=== PATIENT | female | born 1950 | race Caucasian/White ===

== ENCOUNTER 2017-02-26 08:47 | Outpatient (RCR) | payer MEDICARE, OTHER ==
[2017-02-20 09:56] LABS: PLATELET COUNT, AUTOMATED 196 K/uL (150-450)
[~2017-02-26] VITALS: Ht 162.6 cm; Wt 72.3 kg
[~2017-02-26 08:47] MED LIST: ACET-1966 PO; ACET-2146 PO; ANAS1TAB35 PO; CALC-2 PO; CHOL200021 PO; CHOL200022 PO; CIPR500S3 PO; CLO10 MT; DIPH-740 PO; EMERGEN-C PO; FENO160T11 PO; HYDR-317 PO; INUL1TAB PO; LOR1 PO; LORA-629 PO; LUTE20TA PO; MAGN250T34 PO; MAGN71.52 PO; MELA2.5T PO; OMEP40CA45 PO; PROC10TA4 PO; PYRI100T57 PO; SIMV-49 PO; VITA-175 PO; VITA1CAP46 PO; ZINC50TA2 PO; [UNRECOGNIZED DRUG - OTHER] PO; megakrill PO; supplements
[2017-02-26 08:57] VITALS: BP 151/84
[2017-02-26] MEDS ORDERED: PRESSER VISION (09:00)
[2017-02-26] MEDS ORDERED: VIT1CAPS9 PO (09:02)
--- NOTE | 2017-02-26 10:31 | [facility] ONCOLOGY NOTE ---
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 HISTORY OF PRESENT ILLNESS Karena returns. She has no new issues. She does complain of some joint achiness and feels that phlebotomy in the past has helped with this. She can get some arthralgias from the aromatase inhibitor as well. However, she had arthritis preceding initiation of it. No new issues. She does complain of dry skin, and we discussed some remedies to improve this. She currently uses Cetaphil cream, and I recommendation consideration of some Aquaphor ointment one to two times a day given the dry cold air at this time. No fevers, chills, concerning lumps or bumps, other concerns. Family is doing well, but her daughter is under high stress with increased work requirements at the [employer] [place]. Karena is helping with various projects including helping with the [employer] team for the [employer]. No other new complaints today. ONCOLOGIC HISTORY The patient received 9 out of a planned 12 cycles of weekly Taxol and Herceptin. The Taxol was stopped due to toxicity. Her history includes a stereotactic biopsy of the lesion in July of 2014 followed by resection with lumpectomy of the left breast lesion on August 20, 2014. She only had 8 mm of invasive cancer, and the sentinel lymph node was negative; however, it was HER2/ franky overexpressed, thus she received chemotherapy and Herceptin. The patient then started on Arimidex and continues on this today. She completed radiation therapy to the left breast after the lumpectomy. This included a boost. Radiation was completed on February 15, 2015. PAST MEDICAL HISTORY Please see my prior note from August 28, 2016. SOCIAL HISTORY Patient is . She has two daughters and both live in [place]. Her hobbies include gardening. REVIEW OF SYSTEMS CONSTITUTIONAL: No fevers, chills or weight change. HEENT: No headache or vision changes. CARDIOVASCULAR: No chest pain, dyspnea on exertion or edema. RESPIRATORY: No shortness of breath, wheeze or cough. GASTROINTESTINAL: No nausea, vomiting. GENITOURINARY: No dysuria or hematuria. MUSCULOSKELETAL: No weakness. Positive joint pain that seems to have worsened recently. I do note that her hematocrit is on the high end of normal. PSYCHIATRIC: No anxiety or depression. ENDOCRINE: No heat or cold intolerance. HEMATOLOGIC/LYMPHATIC: No concerning lumps or bumps. She does bruise easily on the forearms, but this is age related. SKIN: No concerning rashes. The remainder of 14-point review of systems otherwise negative. PHYSICAL EXAMINATION VITAL SIGNS: Blood pressure 151/85, pulse 71, respiratory rate 16, temperature 96.7 Fahrenheit, oxygen saturation 96% on room air. Weight 72.3 kg. Pain 0/10 , fatigue 0/10. GENERAL: Stable condition, resting comfortably in the chair. HEENT: Normocephalic, atraumatic. CARDIOVASCULAR: Regular rate and rhythm. LUNGS: Clear to auscultation bilaterally. ABDOMEN: Soft, nontender, nondistended. No organomegaly. Mild obesity. BREASTS: Exam deferred. LYMPHATIC: No appreciable cervical, supraclavicular or axillary adenopathy. The remainder of physical exam otherwise unremarkable. IMPRESSION/PLAN Mrs. Asher is a pleasant 66-year-old female with the followin. Stage I early-stage node-negative triple-positive breast cancer. She has finished her year of Herceptin. She continues her aromatase inhibitor for at least five years and perhaps ten years. Overall she is tolerating it well. 2. 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 She has benefitted from phlebotomy in the past and has felt better, including improvement in arthralgias. Plan to set up for a phlebotomy this month of one unit. 3. Arthralgias, both due to osteoarthritis with a possible component due to the aromatase inhibitor as well. I answered all of her questions today. Billing: Return visit level 4. Total time 30 minutes, counseling time 20. MTDD
== END 2017-03-09 09:08 | disposition home or self-care (01) ==
LOC: ONC 08:47
PROVIDERS: ATTEND Internal Medicine
DX: Z85.3 Personal history of malignant neoplasm of breast (principal); D75.1 Secondary polycythemia; M25.50 Pain in unspecified joint; Z79.899 Other long term (current) drug therapy
CPT/HCPCS: 36415; 85025; G0463; 82040; 82247; 82310; 82374; 82435; 82465; 82565; 82947; 83718; 84075; 84132; 84155; 84295; 84450; 84460; 84478; 84520; 99212

== ENCOUNTER → 2017-02-27 | Outpatient (CLI) | payer MEDICARE, OTHER ==
[~2017-02-27] MED LIST changes: +PRESSER VISION; +VIT1CAPS9 PO
== END ==
LOC: LAB 14:30
PROVIDERS: ATTEND Internal Medicine
DX: C50.919 Malignant neoplasm of unspecified site of unspecified female breast (principal); Z79.899 Other long term (current) drug therapy
CPT/HCPCS: 36415; 85014; 99195

== ENCOUNTER 2017-07-03 12:58 | Outpatient (RCR) | payer MEDICARE, OTHER ==
[2017-07-03 13:05] VITALS: BP 121/71
[2017-07-14] MEDS ORDERED: MECL25TA9 PO (01:38)
== END 2017-08-14 08:23 | disposition home or self-care (01) ==
LOC: SPU 12:58
PROVIDERS: ATTEND Internal Medicine
DX: D75.1 Secondary polycythemia (principal); Z85.3 Personal history of malignant neoplasm of breast
CPT/HCPCS: 36415; 85014

== ENCOUNTER 2017-07-13 22:08 | Emergency (ER) | payer MEDICARE, OTHER ==
--- NOTE | 2017-07-13 22:17 | ER Report ---
History and Physical Time Seen By MD: 22:16 HPI/ROS CHIEF COMPLAINT: dizziness, numbness in face HISTORY OF PRESENT ILLNESS: This is a 66 year old female. She was at home tonight. Had a bout of vertigo, which is still present, although improved. She felt her tongue and lips go numb, similar to when she has a dental numbing. This spread to her left cheek. She had a little bit of slurred speech as well. No trouble swallowing. No headache. Had some blurred vision, but no double vision. No weakness or numbness in arms or legs. No history of strokes or TIAs in the past. No other illnesses recently. REVIEW OF SYSTEMS: Constitutional: No fever or chills. Eyes: As above. ENT: No sore throat. No congestion. Cardiovascular: No chest pain. No palpitations. Respiratory: No cough. No shortness of breath. Gastrointestinal: No abdominal pain. No change in bowel movements. Genitourinary: No dysuria or problems with urination. Musculoskeletal: No musculoskeletal pain. Skin: No rashes. Neurological: As above. Allergies: Coded Allergies: acetaminophen (Verified Allergy, Intermediate, AVOIDS D/T LIVER ENZYMES, ) Sulfa (Sulfonamide Antibiotics) (Verified Allergy, Unknown, RASH, N/V, ) aspirin (Verified Allergy, Unknown, VERTIGO, AND VOMITTING , 07/13/17) codeine (Verified Allergy, Unknown, 07/13/17) Uncoded Allergies: NASOCOR (Allergy, Severe, ANAPHYLAXIS, 09/07/14) HAYFEVER (Allergy, Intermediate, HEADACHES, COUGHING, 01/25/16) BAR 2 INHIBITORS (Allergy, Unknown, 07/14/14) DAIRY (Allergy, Unknown, 07/14/14) Home Meds Active Scripts Meclizine Hcl (MECLIZINE HCL) 25 Mg Tablet, 25 MG PO BID Y for DIZZINESS, #20 TAB 0 Refills Prov:CHASITY JOSHUA MD 07/14/17 Anastrozole (ARIMIDEX) 1 Mg Tablet, 1 MG PO DAILY, #90 TAB 3 Refills Prov:LUDA ALEJO MANAGER OF [employer]ANCIAL[employer], ONC 01/25/17 Reported Medications Vit C/E/Zn/Coppr/Lutein/Zeaxan (Preservision Areds 2 Softgel) 1 Each Capsule, 2 TAB PO BID 02/26/17 Vitamin B Complex (B COMPLEX) 1 Each Tablet, 1 EACH PO DAILY 02/28/16 Magnesium Chloride (SLOW-MAG) 71.5 Mg Tablet.dr, 143 MG PO DAILY 09/07/14 Cholecalciferol (Vitamin D3) (VITAMIN D) 2,000 Unit Tablet, 2000 UNIT PO TID 09/03/14 [megakrill] No Conflict Check, 1000 MG PO QDAY 08/13/14 Calcium Phosphate Trib/Vit D3 (Calcium + Vitamin D3 Gummies) 1 Each Tab.chew, 4 TAB PO QDAY 08/13/14 Past Medical/Surgical History Occasional headaches, hyperlipidemia, diverticulosis, history of breast cancer with lumpectomy and chemotherapy and radiation. Other surgeries include basal cell carcinoma removal, hysterectomy, ankle fusion, tonsillectomy Reviewed Nurses Notes: Yes Hx Smoking: No Smoking Status: Never Smoker Exposure to Second Hand Smoke?: No Hx Substance Use Disorder: No Hx Alcohol Use: Yes Constitutional Vital Sign - Last 24 Hours 07/13/17 07/13/17 07/13/17 07/13/17 22:14 22:23 22:30 22:38 Temp 97.5 Pulse 74 ??? 66 Resp 24 15 B/P (MAP) 144/87 141/86 (104) Pulse Ox 93 95 95 O2 Delivery Room Air 07/13/17 07/13/17 07/13/17 07/13/17 22:53 23:00 23:08 23:23 Pulse 62 65 70 Resp 12 26 9 B/P (MAP) 150/84 (106) Pulse Ox 95 92 95 07/13/17 07/13/17 07/13/17 07/13/17 23:28 23:30 23:43 23:48 Pulse 61 61 60 Resp 13 11 12 B/P (MAP) 145/83 (103) Pulse Ox 95 07/14/17 07/14/17 07/14/17 07/14/17 00:58 01:00 01:03 01:23 Pulse 55 64 Resp 18 15 B/P (MAP) 146/84 (104) 151/79 (103) Pulse Ox 89 93 Physical Exam General Appearance: The patient is alert. No acute distress. Non-toxic in appearance. Eyes: Pupils are equal, round. Reactive to light. No pallor, injection or icterus. Extraocular movements are intact. No nystagmus. Normal peripheral hickey. ENT: Mucous membranes are moist. Normal oral mucosa. Posterior oropharynx is normal. Normal tympanic membranes and canals. Neck: Supple and non tender. No lymphadenopathy. Respiratory: Lungs are clear to auscultation. Cardiovascular: Regular rate and rhythm. No murmurs, gallops or rubs. Normal capillary refill. No edema. No carotid bruits. Gastrointestinal: Abdomen is soft and non tender. Nondistended. Normal active bowel sounds. No costovertebral angle tenderness with percussion. Neurological: Alert and oriented x3. Cranial nerves with eye exam as noted above , she still has numbness in her tongue but tongue is midline and she has symmetric palate elevation. Normal sensation in the face at this time without any evidence of facial droop, although there was slight loss of the nasolabial fold when I walked into the room initially but this is normal. No slurred speech. No trouble swallowing. Normal gag. Extremities also show diminished reflexes throughout but normal, normal strength and sensation in the extremities bilaterally. Normal cerebellar function with [id number] and finger to nose. Skin: Warm and dry. No rashes. Musculoskeletal: Extremities are nontender. No tenderness in palpation of the cervical, thoracic and lumbar spine. DIFFERENTIAL DIAGNOSIS: After history and physical exam, differential diagnosis was considered for what appears to be likely transient ischemic attack given her symptoms. Medical Decision Making Data Points Result Diagram: 07/13/17224407/13/172244 Laboratory Hematology Test 07/13/17 22:45 07/13/17 22:51 Red Blood Count 4.67 M/uL (4.17-5.56) Mean Corpuscular Volume 91.8 fL (80.0-96.0) Mean Corpuscular Hemoglobin 32.5 pg (26.0-33.0) Mean Corpuscular Hemoglobin Concent 35.4 g/dL (32.0-36.0) Red Cell Distribution Width 13.6 % (11.5-14.5) Mean Platelet Volume 8.8 fL (7.2-11.1) Neutrophils (%) (Auto) 48.8 % (39.4-72.5) Lymphocytes (%) (Auto) 35.5 % (17.6-49.6) Monocytes (%) (Auto) 12.5 % (4.1-12.4) Eosinophils (%) (Auto) 1.8 % (0.4-6.7) Basophils (%) (Auto) 1.4 % (0.3-1.4) Nucleated RBC Relative Count (auto) 0.1 /100WBC Neutrophils # (Auto) 2.4 K/uL (2.0-7.4) Lymphocytes # (Auto) 1.7 K/uL (1.3-3.6) Monocytes # (Auto) 0.6 K/uL (0.3-1.0) Eosinophils # (Auto) 0.1 K/uL (0.0-0.5) Basophils # (Auto) 0.1 K/uL (0.0-0.1) Nucleated RBC Absolute Count (auto) 0.01 K/uL Prothrombin Time 13.5 seconds (12.0-14.4) Prothromb Time International Ratio 1.03 Activated Partial Thromboplast Time 30 seconds (23-35) Sodium Level 135 mmol/L (137-145) Potassium Level 3.4 mmol/L (3.5-5.0) Chloride Level 102 mmol/L (98-107) Carbon Dioxide Level 24 mmol/L (22-31) Blood Urea Nitrogen 11 mg/dl (7-18) Creatinine 0.70 mg/dl (0.52-1.04) Glomerular Filtration Rate Calc > 60.0 Random Glucose 117 mg/dl (75-110) Calcium Level 9.6 mg/dl (8.4-10.2) Total Bilirubin 0.4 mg/dl (0.2-1.3) Aspartate Amino Transf (AST/SGOT) 28 U/L (0-35) Alanine Aminotransferase (ALT/SGPT) 20 U/L (0-56) Alkaline Phosphatase 106 U/L (0-126) Troponin I < 0.012 ng/ml Total Protein 6.8 gm/dl (6.3-8.2) Albumin 3.7 g/dl (3.5-5.0) Whole Blood Glucose 107 mg/DL (75-110) Chemistry Test 07/13/17 22:45 07/13/17 22:51 White Blood Count 4.9 k/uL (4.5-11.0) Red Blood Count 4.67 M/uL (4.17-5.56) Hemoglobin 15.2 g/dL (12.0-16.0) Hematocrit 42.9 % (34.0-47.0) Mean Corpuscular Volume 91.8 fL (80.0-96.0) Mean Corpuscular Hemoglobin 32.5 pg (26.0-33.0) Mean Corpuscular Hemoglobin Concent 35.4 g/dL (32.0-36.0) Red Cell Distribution Width 13.6 % (11.5-14.5) Platelet Count 193 K/uL (150-450) Mean Platelet Volume 8.8 fL (7.2-11.1) Neutrophils (%) (Auto) 48.8 % (39.4-72.5) Lymphocytes (%) (Auto) 35.5 % (17.6-49.6) Monocytes (%) (Auto) 12.5 % (4.1-12.4) Eosinophils (%) (Auto) 1.8 % (0.4-6.7) Basophils (%) (Auto) 1.4 % (0.3-1.4) Nucleated RBC Relative Count (auto) 0.1 /100WBC Neutrophils # (Auto) 2.4 K/uL (2.0-7.4) Lymphocytes # (Auto) 1.7 K/uL (1.3-3.6) Monocytes # (Auto) 0.6 K/uL (0.3-1.0) Eosinophils # (Auto) 0.1 K/uL (0.0-0.5) Basophils # (Auto) 0.1 K/uL (0.0-0.1) Nucleated RBC Absolute Count (auto) 0.01 K/uL Prothrombin Time 13.5 seconds (12.0-14.4) Prothromb Time International Ratio 1.03 Activated Partial Thromboplast Time 30 seconds (23-35) Glomerular Filtration Rate Calc > 60.0 Calcium Level 9.6 mg/dl (8.4-10.2) Total Bilirubin 0.4 mg/dl (0.2-1.3) Aspartate Amino Transf (AST/SGOT) 28 U/L (0-35) Alanine Aminotransferase (ALT/SGPT) 20 U/L (0-56) Alkaline Phosphatase 106 U/L (0-126) Troponin I < 0.012 ng/ml Total Protein 6.8 gm/dl (6.3-8.2) Albumin 3.7 g/dl (3.5-5.0) Whole Blood Glucose 107 mg/DL (75-110) Coagulation Test 07/13/17 22:45 Prothrombin Time 13.5 seconds Prothromb Time International Ratio 1.03 Activated Partial Thromboplast Time 30 seconds EKG/Imaging Imaging CHEST SINGLE AP 07/13/2017 22:31 hours. HISTORY: Facial numbness and slurred speech. Dizziness. COMPARISON: 11/09/2014. TECHNIQUE: Portable AP view of the chest. FINDINGS: Tubes/lines/hardware: There are external chest leads. Pulmonary: There is hyperinflation. There is minimal right basilar atelectasis. There is a stable calcified granuloma in the left lower lung zone. There is no pneumothorax or pleural effusion. Cardiomediastinal: Cardiac and mediastinal silhouettes are within normal limits. There is mild aortic calcification. Bones/soft tissues: No acute osseous abnormality. There is mild degenerative change of the spine. The visible abdomen is normal. IMPRESSION: 1. Minimal right basilar atelectasis. Report Dictated By: Rosario Stinson at 07/13/2017 11:26 PM EXAMINATION: CT Head without intravenous contrast HISTORY: Facial numbness. Slurred speech. TECHNIQUE: Axial images were obtained from the skull base to the vertex without intravenous contrast. Sagittal and coronal reformatted images are also submitted. One of the following dose optimization techniques was utilized in the performance of this exam: Automated exposure control; adjustment of the mA and/ or kV according to the patient's size; or use of an iterative reconstruction technique. Specific details can be referenced in the facility's radiology CT exam operational policy. COMPARISON: None available. FINDINGS: Brain volume: Normal. Ventricles: Negative. Acute ischemic changes: None. Hemorrhage: None. Masses / edema: None. Rojas-white: Negative. White matter: Mild chronic microvascular ischemic changes in the frontal lobes. Vessels: Negative. Extra-axial: Negative. Calvarium / skull base: Negative. Visualized sinuses / orbits: Rightward nasal septal deviation. IMPRESSION: No acute intracranial abnormality. Report Dictated By: Sal Romero MD at 07/13/2017 11:22 PM EXAMINATION: MRI Brain without intravenous contrast HISTORY: Facial numbness. Dizziness. COMPARISON: Noncontrast head CT from same date. TECHNIQUE: Multi-planar, multi-sequence brain MRI was performed without IV contrast administration. FINDINGS: Brain volume: Normal. Sagittal midline structures: Negative. Ventricles: Negative. Acute ischemic changes: None. Hemorrhage: None. Masses / edema: None. Rojas-white: Negative. White matter: A few T2/FLAIR hyperintensities in the deep white matter bilaterally. Vessels: Negative. Extra-axial: Negative. Calvarium / scalp: Negative. Skull base: Negative. Visualized sinuses / orbits: Negative. Visualized upper neck: Negative. IMPRESSION: 1. No acute intracranial abnormality. 2. Mild chronic white matter changes, nonspecific but most likely representing chronic microvascular ischemia. Report Dictated By: Sal Romero MD at 07/14/2017 1:00 AM ED Course/Re-evaluation ED Course On my initial walk in the room once hearing her symptoms, stat head CT scan without contrast was ordered. This was negative. An NIH stroke scale was done upon her return from radiology and she scored a zero on this as well. Normal physical exam as noted, other than the continued numbness in her tongue. Bedside blood glucose was normal. Labs obtained and negative. Normal chest x- ray. MRI brain done which was negative for acute stroke. Meclizine provided to help with Vertigo. No sign of stroke, but cannot tell for sure cause of symptoms. Would think that TIA is the most likely diagnosis. Other cause of vertigo such as viral process cannot be excluded. Conservative approach. She is allergic to aspirin, so cannot start this. She will discuss Statins with her primary care provider. Follow-up studies to be done include CTA Brain and Neck/Carotids as well as Echocardiogram. Decision to Disposition Date: July 14, 2017 Decision to Disposition Time: 01:29 Depart Departure Latest Vital Signs Vital Signs Date Time Temp Pulse Resp B/P (MAP) Pulse Ox O2 Delivery O2 Flow Rate FiO2 07/14/17 01:23 64 15 93 07/14/17 01:00 151/79 (103) 07/13/17 22:14 97.5 Room Air Impression: Primary Impression: Transient ischemic attack (TIA) Condition: Improved Disposition: HOME OR SELF-CARE Referrals: MICHELE GODYO (PCP) New Scripts Meclizine Hcl (MECLIZINE HCL) 25 Mg Tablet 25 MG PO BID Y for DIZZINESS, #20 TAB 0 Refills Prov: CHASITY JOSHUA MD 07/14/17 Patient Instructions: Transient Ischemic Attack (ED) Additional Instructions: Please call and arrange an appointment with Luda this week for re-evaluation. Schedule to have the CT scans and echocardiogram done here at the hospital this coming week. Rest and increase fluid intake. You will need to discuss other medicines that may be used to help prevent further TIA and stroke with Luda when you see her. Return to the ER for further problems as needed this weekend. Problem Qualifiers Primary Impression: Transient ischemic attack (TIA) Transient cerebral ischemia type: unspecified Qualified Codes: G45.9 - Transient cerebral ischemic attack, unspecified CHASITY JOSHUA MD July 13, 2017 22:17
[2017-07-13 22:52] LABS: PLATELET COUNT, AUTOMATED 193 K/uL (150-450)
[2017-07-13 23:01] LABS: INR 1.03
--- NOTE | 2017-07-13 23:30 | RADIOLOGY IMAGING REPORT ---
FACILITY: [facility] - [place] PATIENT NAME: Karena Asher : 1950 MR: [id number] V: [id number] EXAM DATE: ORDERING PHYSICIAN: CHASITY JOSHUA TECHNOLOGIST: Location: [facility] Patient: Karena Asher : 1950 Visit/Account:[id number] Date of Sevice: 07/13/2017 EXAMINATION: CT Head without intravenous contrast HISTORY: Facial numbness. Slurred speech. TECHNIQUE: Axial images were obtained from the skull base to the vertex without intravenous contrast . Sagittal and coronal reformatted images are also submitted. One of the following dose optimization techniques was utilized in the performance of this exam: Autom ated exposure control; adjustment of the mA and/or kV according to the patient's size; or use of an i terative reconstruction technique. Specific details can be referenced in the facility's radiology C T exam operational policy. COMPARISON: None available. FINDINGS: Brain volume: Normal. Ventricles: Negative. Acute ischemic changes: None. Hemorrhage: None. Masses / edema: None. Rojas-white: Negative. White matter: Mild chronic microvascular ischemic changes in the frontal lobes. Vessels: Negative. Extra-axial: Negative. Calvarium / skull base: Negative. Visualized sinuses / orbits: Rightward nasal septal deviation. IMPRESSION: No acute intracranial abnormality. Report Dictated By: Sal Romero MD at 07/13/2017 11:22 PM Report E-Signed By: Sal Romero MD at 07/13/2017 11:26 PM WSN:[id number]
--- NOTE | 2017-07-13 23:31 | RADIOLOGY IMAGING REPORT ---
[place] [facility] [place] NAME: Karena Ahser : 1950 MR: [id number] V: [id number] EXAM DATE: ORDERING PHYSICIAN: CHASITY JOSHUA TECHNOLOGIST: [place] [facility] [place]: Karena Asher : 1950 Visit/Account:[id number] Date of Sevice: 07/13/2017 CHEST SINGLE AP 07/13/2017 22:31 hours. HISTORY: Facial numbness and slurred speech. Dizziness. COMPARISON: 11/09/2014. TECHNIQUE: Portable AP view of the chest. FINDINGS: Tubes/lines/hardware: There are external chest leads. Pulmonary: There is hyperinflation. There is minimal right basilar atelectasis. There is a stable ritu cified granuloma in the left lower lung zone. There is no pneumothorax or pleural effusion. Cardiomediastinal: Cardiac and mediastinal silhouettes are within normal limits. There is mild aortic calcification. Bones/soft tissues: No acute osseous abnormality. There is mild degenerative change of the spine. The visible abdomen is normal. IMPRESSION: 1. Minimal right basilar atelectasis. Report Dictated By: Rosario Stinson at 07/13/2017 11:26 PM Report E-Signed By: Rosario Stinson at 07/13/2017 11:27 PM WSN:[id number]
[2017-07-13] MEDS ORDERED: ONDANSETRON 4 MG/2 ML VIAL IVP ONE (23:35)
[2017-07-14 01:00] VITALS: BP 151/79
--- NOTE | 2017-07-14 01:07 | RADIOLOGY IMAGING REPORT ---
FACILITY: [facility] PATIENT NAME: Karena Asher : 1950 MR: [id number] V: [id number] EXAM DATE: ORDERING PHYSICIAN: CHASITY JOSHUA [place]CHNOLOGIST: [place] [facility] [place] : 1950 Visit/Account:[id number] Date of Sevice: 07/13/2017 EXAMINATION: MRI Brain without intravenous contrast HISTORY: Facial numbness. Dizziness. COMPARISON: Noncontrast head CT from same date. TECHNIQUE: Multi-planar, multi-sequence brain MRI was performed without IV contrast administration. FINDINGS: Brain volume: Normal. Sagittal midline structures: Negative. Ventricles: Negative. Acute ischemic changes: None. Hemorrhage: None. Masses / edema: None. Rojas-white: Negative. White matter: A few T2/FLAIR hyperintensities in the deep white matter bilaterally. Vessels: Negative. Extra-axial: Negative. Calvarium / scalp: Negative. Skull base: Negative. Visualized sinuses / orbits: Negative. Visualized upper neck: Negative. IMPRESSION: 1. No acute intracranial abnormality. 2. Mild chronic white matter changes, nonspecific but most likely representing chronic microvascular ischemia. Report Dictated By: Sal Romero MD at 07/14/2017 1:00 AM Report E-Signed By: Sal Romero MD at 07/14/2017 1:03 AM WSN:[id number]
[2017-07-14] MEDS ORDERED: MECL25TA9 PO (01:38)
[2017-07-14] MEDS ORDERED: MECLIZINE HCL 12.5 MG TAB TH PO ONE (01:40)
--- NOTE | 2017-07-14 05:06 | EKG ---
FACILITY: [facility] - [place], [place] PATIENT NAME: RADHA LUCAS : [id number] MR: [id number] V: [id number] EXAM DATE: ORDERING PHYSICIAN: CHASITY JOSHUA TECHNOLOGIST: WALESKA Dia Reason : NEURO Blood Pressure : / mmHG Vent. Rate : 066 BPM Atrial Rate : 066 BPM P-R Int : 130 ms QRS Dur : 088 ms QT Int : 434 ms P-R-T Axes : 062 063 078 degrees QTc Int : 454 ms Normal sinus rhythm Possible Left atrial enlargement Borderline ECG When compared with ECG of 27-JAN-2016 09:59, No significant change was found Confirmed by ALEXY PEREZ ([id number]) on 07/14/2017 6:16:52 AM Referred By: TRES Confirmed By:ALEXY PEREZ
== END 2017-07-14 01:40 | disposition home or self-care (01) ==
LOC: ER 22:22
DX: G45.9 Transient cerebral ischemic attack, unspecified (principal)
CPT/HCPCS: 36416; 70450; 70551; 71045; 82948; 84484; 85025; 85610; 85730; 93005; 96374; 99284; J2405; 82040; 82247; 82310; 82374; 82435; 82565; 82947; 84075; 84132; 84155; 84295; 84450; 84460; 84520

== ENCOUNTER → 2017-07-17 | Outpatient (CLI) | payer MEDICARE, OTHER ==
[~2017-07-17] MED LIST changes: +MECL25TA9 PO
== END ==
LOC: NUC 13:58
PROVIDERS: ATTEND Nurse Practitioner Family
DX: Z02.9 Encounter for administrative examinations, unspecified (principal)

== ENCOUNTER → 2017-07-18 | Outpatient (CLI) | payer MEDICARE, OTHER ==
--- NOTE | 2017-07-18 17:49 | RADIOLOGY IMAGING REPORT ---
FACILITY: [facility] PATIENT NAME: Karena Asher : 1950 MR: [id number] V: [id number] EXAM DATE: ORDERING PHYSICIAN: KACIE ALEJO TECHNOLOGIST: Location: [facility] Patient: Karena Asher : 1950 Visit/Account:[id number] Date of Sevice: 07/18/2017 EXAMINATION: Single Isotope SPECT Imaging with Exercise and Gated SPECT Imaging DATE OF EXAMINATION: 07/18/2017 DATE OF INTERPRETATION: 07/18/2017 REQUESTING PHYSICIAN: KACIE ALEJO INDICATION: The patient is a 66-year-old female evaluated for fatigue, cerebral ischemia. PROCEDURE: After informed consent the patient received an intravenous injection of 12.3 mCi of Tc-9 9m sestamibi followed at the appropriate time interval by rest imaging. The patient then exercised a ccording to the [place] 2 protocol for 4:27 minutes achieving 5 METS. Resting heart rate was 66 bpm wi th a peak heart rate of 150 bpm which is 98 % of maximal predicted heart rate for age. Blood pressu re at rest was 156 / 95; blood pressure during exercise was 202 / 90. There was no chest pain during exercise. Exercise was discontinued because of fatigue. Baseline EKG demonstrates normal sinus rhy thm, no ST or T-wave abnormalities. There were no EKG changes of ischemia at peak exercise. Approxi mately one minute and 30 seconds prior to the termination of exercise, the patient received an intrav enous injection of 30.6 mCi of Tc-99m sestamibi followed by stress imaging. RAW DATA: Examination of the summed raw data revealed a good quality study. MYOCARDIAL PERFUSION: The tomographic images demonstrate no evidence of infarct or ischemia. GATED IMAGES: The gated images demonstrate normal wall motion, hyperdynamic ejection fraction at 84% IMPRESSION: 1. Good quality study 2. Normal myocardial perfusion scan. 3. Hyperdynamic LV systolic function; LVEF 84%. 4. Based on the results of this exam, the patient appears to be at low risk for future cardiovascular events. Report Dictated By: Jeremi Motley at 07/18/2017 5:34 PM Report E-Signed By: Jeremi Motley at 07/18/2017 5:46 PM WSN:[id number]
--- NOTE | 2017-07-19 06:51 | RT STRESS TEST REPORT ---
FACILITY: [facility] PATIENT NAME: RADHA LUCAS : [id number] MR: [id number] V: [id number] EXAM DATE: ORDERING PHYSICIAN: LUDA MCKEON TECHNOLOGIST: Kevin Acquisition Time: 2017-07-18 14:12:35 Total Exercise Time: 00:04:27 Test Indications: Weakness Medications: see nuc med sheet Protocol: HAKEEM 2 Max HR: 150 BPM 98% of Pred: 152 BPM Max BP: 202/090 mmHG Max Work Load: 6.3 METS Correlate with images Confirmed by VENUS EM ([id number]) on 07/19/2017 6:51:29 AM Referred By: Luda Mckeon Overread By: VENUS EM
== END ==
LOC: NUC 01:31
PROVIDERS: ATTEND Nurse Practitioner Family
DX: E78.4 Other hyperlipidemia (principal); R53.83 Other fatigue; R68.89 Other general symptoms and signs; R20.0 Anesthesia of skin; G45.9 Transient cerebral ischemic attack, unspecified
CPT/HCPCS: 78452; 93017; A9500

== ENCOUNTER → 2017-07-20 | Outpatient (CLI) | payer MEDICARE, OTHER ==
--- NOTE | 2017-07-20 14:29 | RADIOLOGY IMAGING REPORT ---
FACILITY: [facility] PATIENT NAME: Karena Asher : 1950 MR: [id number] V: [id number] EXAM DATE: ORDERING PHYSICIAN: KACIE ALEJO TECHNOLOGIST: Location: [facility] Patient: Karena Asher : 1950 Visit/Account:[id number] Date of Sevice: 07/20/2017 CAROTID HISTORY: TIA, foggy vision, dizziness COMPARISON: None. FINDINGS: Grayscale, duplex and color Doppler interrogation of the extracranial carotid and vertebral arteries was performed bilateral. On the right, peak systolic velocities within the common and internal carotid arteries are 134 and 11 0 cm/sec respectively. No significant plaque identified. Antegrade flow within the common, internal and external carotid arteries as well as vertebral artery. ICA/CCA ratio 0.8. On the left, peak systolic velocities within the common and internal carotid arteries are 245 and 90 cm/sec respectively. No significant plaque identified. Antegrade flow within the common, internal a nd external carotid arteries as well as vertebral artery. ICA/CCA ratio 0.9. IMPRESSION: There is an elevated systolic velocity in the left common carotid artery of 245 cm/s however no signi ficant plaque identified bilaterally and no abnormal velocities identified in the internal carotid ar teries. CTA of the carotids to include the aortic arch may be helpful depending upon the clinical pr esentation Velocity criteria are extrapolated from diameter data as defined by the Society of Radiologists in Ul trasound Consensus Conference Radiology 2003; 229;340-346 Report Dictated By: Kaylan Whitehead MD at 07/20/2017 2:24 PM Report E-Signed By: Kaylan Whitehead MD at 07/20/2017 2:26 PM WSN:[id number]
== END ==
LOC: US 08:56
PROVIDERS: ATTEND Nurse Practitioner Family
DX: E78.4 Other hyperlipidemia (principal); R53.83 Other fatigue; R68.89 Other general symptoms and signs; R20.0 Anesthesia of skin; G54.9 Nerve root and plexus disorder, unspecified
CPT/HCPCS: 93880

== ENCOUNTER → 2017-07-27 | Outpatient (CLI) | payer MEDICARE, OTHER ==
[~2017-07-27] MED LIST changes: +IOPAMIDOL 76% 75 ML INFUS BTL 75 ML ONE; +NS 0.9% 25 ML BAG 50 ML ONE
--- NOTE | 2017-07-27 14:30 | RADIOLOGY IMAGING REPORT ---
FACILITY: [facility] [place] [place] PATIENT NAME: Karena Asher : 1950 MR: [id number] V: [id number] EXAM DATE: ORDERING PHYSICIAN: KACIE ALEJO TECHNOLOGIST: Location: [facility] [place] Patient: Karena Asher : 1950 Visit/Account:[id number] Date of Sevice: 07/27/2017 CTA NECK/CAROTIDS W W/O CONTR Provided history: Elevated systolic velocity left common carotid without visualized stenosis or plaqu e. Assess with CTA. Additional pertinent history: none TECHNIQUE: Overlapping thin sections were obtained during a bolus of IV contrast from the aortic arch through th e hoh of [place]. Reconstruction of the source data set includes multiplanar 2D in the sagittal and coronal planes, and 3D coronal thin slab MIP series. Kettle Fry Cook Operator images have been stored on PACS. Stenosis calculations are performed using the NASCET criteria (the diameter of the stenotic segment d ivided by the diameter of a normal distal segment of internal carotid artery, where jones are paralle l, then subtracted from 1) Contrast: 75 ml Isovue 370 One of the following dose optimization techniques was utilized in the performance of this exam: Autom ated exposure control; adjustment of the mA and/or kV according to the patient's size; or use of an i terative reconstruction technique. Specific details can be referenced in the facility's radiology C T exam operational policy. COMPARISON STUDIES: Ultrasound 07/20/17 FINDINGS: Angiographic findings: Aortic arch and great vessels: There is common origin of the innominate and left common carotid wit hout ostial stenosis. Nonstenotic calcified plaque at the origin left subclavian. No significant innominate stenosis. Right CCA / ICA: Moderate tortuosity of the proximal common carotid without kinking or focal stenos is. Bifurcation normal with the exception of a minor calcified plaque along the anterior wall, nonst enotic. Ascending cervical segment normal. Petrous segment normal. Siphon normal. Bifurcation nor mal. Left CCA / ICA: Proximal common carotid tortuosity is more prominent than the right side. There is a kink in the vessel best seen coronal image 87, sagittal image 115 and axial image 351 of series 12 resulting in an estimated 50% narrowing of the lumen of the vessel. This is also nicely demonstrate d on the ultrasound. Rest of the common carotid is negative. Bifurcation normal. The ascending cer vical segment demonstrates subtle undulating pattern of the surface of the vessel which may indicate mild associated FMD. Petrous segment and siphon are normal. Bifurcation normal.. Vertebro-basilar: Origin both vertebrals is widely patent. There codominant of the left is slightl y larger than the right. There are very tortuous.. They join in the posterior fossa form a normal-s ized basilar. No stenotic disease. There is equivocal subtle surface undulation of both vertebral arteries may indicate minor involvemen t with FMD as well. [place] of Hallman: Negative. Other: none significant Additional non-angiographic findings: Advanced degenerative change cervical spine most notably C4-5, C5-6, C6-7 and C7-T1 without high-grad e stenotic disease. IMPRESSION: 1. Tortuous vessels suggest chronic systemic hypertension. There is a kink in the proximal left com mon carotid, correlating with the ultrasound findings and resulting in an estimated 50% narrowing of the lumen of the vessel. No other significant left carotid disease. Widely patent common origin wit h the innominate. 2. Subtle surface undulation of the left internal carotid and both vertebral arteries may indicate a mild form of FMD. No clear evidence of dissection. 3. Minimal calcified plaque of the right carotid. No stenotic disease. Report Dictated By: Joel Sweeney MD at 07/27/2017 2:09 PM Report E-Signed By: Joel Sweeney MD at 07/27/2017 2:24 PM WSN:[id number]
--- NOTE | 2017-07-31 08:32 | RADIOLOGY IMAGING REPORT ---
FACILITY: [facility] PATIENT NAME: RADHA LUCAS : [id number] MR: [id number] V: [id number] EXAM DATE: ORDERING PHYSICIAN: KACIE ALEJO TECHNOLOGIST: Anny Seth PROCEDURE:BILATERAL DIGITAL SCREENING MAMMOGRAM WITH CAD ASSISTED INTERPRETATION & 3D TOMOSYNTHESIS COMPARISON:Prior mammograms 07/25/16, 01/19/16, 07/16/15, 08/20/14. INDICATIONS:SCREENING FINDINGS: Moderately dense fibroglandular tissue is seen throughout the breasts. The parenchymal pattern has remained stable allowing for difference in mammographic technique & patient positioning. There is no evidence of malignant appearing mass, malignant appearing calcifications or other secondary sign of malignancy in either breast. An area of postsurgical scaring in the medial inferior Left breast is again seen. DIAGNOSTIC CATEGORY 2--BENIGN FINDING. RECOMMENDATIONS: ROUTINE MAMMOGRAM AND CLINICAL EVALUATION. IMPRESSION: BIRADS 2: Benign finding. No significant abnormality is seen. Dictated by: Kaylan Whitehead M.D. on 07/30/2017 at 15:19 Transcribed by: ARVIND on 07/30/2017 at 15:38 Approved by: Kaylan Whitehead M.D. on 07/31/2017 at 8:32 [facility]
== END ==
LOC: MAMO 01:16
PROVIDERS: ATTEND Nurse Practitioner Family
DX: Z12.31 Encounter for screening mammogram for malignant neoplasm of breast (principal); I10 Essential (primary) hypertension
CPT/HCPCS: 70498; 77063; 77067; Q9967

== ENCOUNTER 2018-02-04 14:19 | Outpatient (RCR) | payer MEDICARE, OTHER ==
[2018-01-28 10:00] VITALS: BP 152/75
[2018-01-28 10:28] LABS: PLATELET COUNT, AUTOMATED 211 K/uL (150-450)
[~2018-02-04 14:19] MED LIST changes: +ANAS1TAB12 PO; -ANAS1TAB35 PO; +CHOL200018 PO; -CHOL200022 PO; -IOPAMIDOL 76% 75 ML INFUS BTL 75 ML ONE; -NS 0.9% 25 ML BAG 50 ML ONE
[2018-02-04 14:24] VITALS: BP 140/82
[2018-02-04] MEDS ORDERED: UBID100C48 PO (14:33)
[2018-02-04] MEDS ORDERED: ASPI-1471 PO (14:33)
[2018-02-04] MEDS ORDERED: COD1CAPS40 PO (14:33)
[2018-02-04] MEDS ORDERED: ATOR20TA22 PO (14:33)
[2018-02-04] MEDS ORDERED: INUL1TAB PO (14:33)
[2018-02-04] MEDS ORDERED: IBUP200C74 PO (14:33)
[2018-02-04] MEDS ORDERED: VIT1CAPS34 PO (14:33)
[2018-02-04] MEDS ORDERED: CALC-52 PO (15:42)
--- NOTE | 2018-02-05 10:23 | ONCOLOGY FOLLOW UP NOTE ---
EVENT DATE: February 04, 2018 CHIEF COMPLAINT/REASON FOR VISIT Ms. 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 HISTORY OF PRESENT ILLNESS Karena returns. I have not seen her in 11 months, I believe. She had a mammogram done earlier this year, which was unremarkable. Her history this year is also remarkable for a TIA that she had in earlier 2018. She was not on aspirin or a lipid lowering agent at that time; she now is. 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 In the past, she had been on Niacin but had significant flushing and she had also been on Red Yeast Rice in the past but had myositis with that as well. She did not take the Niacin at night and I recommended she could take Niacin right before bed to minimize the effect of the flushing and she is going to entertain this. In my opinion, she should follow up with Dr. Mckeon or neurology to consider stopping the statin given the side effect she is having. ONCOLOGIC HISTORY The patient received 9 out of a planned 12 cycles of weekly Taxol and Herceptin. The Taxol was stopped due to toxicity. Her history includes a stereotactic biopsy of the lesion in July of 2014 followed by resection with lumpectomy of the left breast lesion on August 20, 2014. She only had 8 mm of invasive cancer, and the sentinel lymph node was negative; however, it was HER2/franky overexpressed, thus she received chemotherapy and Herceptin. The patient then started on Arimidex and continues on this today. She completed radiation therapy to the left breast after the lumpectomy. This included a boost. Radiation was completed on February 15, 2015. SOCIAL HISTORY Patient is . She has two daughters and both live in [place]. Her hobbies include gardening. REVIEW OF SYSTEMS CONSTITUTIONAL: No fevers, chills. HEENT: No headache or vision changes. CARDIOVASCULAR: No chest pain, dyspnea on exertion or edema. RESPIRATORY: No shortness of breath, wheeze or cough. GASTROINTESTINAL: No nausea, vomiting. GENITOURINARY: No dysuria or hematuria. MUSCULOSKELETAL: No weakness. Significant joint pain, although she has had joint pain in the past. Positive muscle pain since starting the statin. PSYCHIATRIC: No anxiety or depression. HEMATOLOGIC/LYMPHATIC: No concerning lumps or bumps. SKIN: She has a slight rash between her breasts that is new. I am concerned about a mild tinea infection. The remainder of 14-point review of systems otherwise negative. PHYSICAL EXAMINATION VITAL SIGNS: Blood pressure 140/82, pulse 69, respiratory rate 16, temperature 97.1 Fahrenheit, oxygen saturation 94% on room air, weight 69.8 kg, which is down by 5 pounds compared to last year. Pain 3/10, fatigue 4/10. GENERAL: Stable condition, resting comfortably in the chair. HEENT: Normocephalic, atraumatic. SKIN: Patient has a mild erythematous rash between the breasts, which may be a mild tinea. I recommended she can try some ishw-ful-gcoaaao remedies for that and she states she had some at home as she has had some of this before but in different location. She denies any under the breast. Full exam deferred today. CARDIOVASCULAR: Regular rate and rhythm. LUNGS: Clear. ABDOMEN: Soft. No organomegaly or masses. EXTREMITIES: No clubbing, cyanosis or edema. The remainder of physical exam otherwise unremarkable. IMPRESSION/PLAN Mrs. Asher is a pleasant 66-year-old female with the followin. Stage I early-stage node-negative triple-positive breast cancer. She has finished her year of Herceptin and continues on the aromatase inhibitor for at least five years and perhaps ten. She is tolerating it well. I do not believe this is the cause of her myositis type pain. 2. 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 3. Arthralgias. There may be a component from the aromatase inhibitor. 4. Muscle pain. I believe this is due to the Lipitor. While she has had a TIA that had significant vertigo, I believe she should continue the aspirin but discontinue the Lipitor and switch to Niacin at night. I defer to her primary care provider, of course, though. I answered all of her questions today. Billing: Return visit level 4. Total time 30 minutes, counseling time 20. MTDD
== END 2018-02-06 10:14 | disposition home or self-care (01) ==
LOC: ONC 14:19
PROVIDERS: ATTEND Internal Medicine
DX: C50.919 Malignant neoplasm of unspecified site of unspecified female breast (principal); Z79.899 Other long term (current) drug therapy
CPT/HCPCS: 36415; 82652; 85025; G0463; 82040; 82247; 82310; 82374; 82435; 82565; 82947; 84075; 84132; 84155; 84295; 84450; 84460; 84520; 99212

== ENCOUNTER → 2018-07-29 | Outpatient (CLI) | payer MEDICARE, OTHER ==
[~2018-07-29] MED LIST changes: +ASPI-1471 PO; +ATOR20TA22 PO; +CALC-52 PO; +COD1CAPS40 PO; +IBUP200C74 PO; +UBID100C48 PO; +VIT1CAPS34 PO
--- NOTE | 2018-07-29 10:53 | RADIOLOGY IMAGING REPORT ---
FACILITY: [facility] PATIENT NAME: Karena Asher : 1950 MR: [id number] V: [id number] EXAM DATE: ORDERING PHYSICIAN: KACIE ALEJO TECHNOLOGIST: Location: [facility] [place] Patient: Karena Asher : 1950 Visit/Account:[id number] Date of Sevice: 07/29/2018 DEXA Scan Clinical history: Osteopenia. Comparison: DEXA scan from 07/25/2016. HIP: Bone mineral density (BMD) measured in the Left total hip region correlates with a Z-score -0.2 and a T-score of -1.6 which is osteopenia as defined by the World Health Organization. The corresponding risk of fracture in the hip is 3-4 times increased compared with a young adult reference population. This total hip value has increase by 3.3 % since the prior study. More than 5% change is considered significant. T score left femoral neck -1.8 Bone mineral density (BMD) measured in the Femoral Neck region measures 0.787 g/cm2. FOREARM: The bone mineral density (BMD) measured in the ULTRADISTAL Left forearm, where trabecular bone predom inates, correlates with a Z-score is 2.7 and a T-score of -4.5 which is osteoporosis as defined by th e World Health Organization. The corresponding risk of fracture in the distal forearm is greater lillian n 16 times increased compared with a young adult reference population. This value has decrease by 12 .3 % since the prior study. More than 5% change is considered significant. The bone mineral density (BMD) in the MIDSHAFT of the forearm, where cortical bone predominates, chantelle elates with a Z-score -2.7 and a T-score of -4.5 which is osteoporosis as defined by the World Health Organization. The corresponding risk of fracture in the midshaft of the forearm is greater than 16 t imes increased compared with a young adult reference population. This value has decreased by .3 % sin ce the prior study. More than 5% change is considered significant. IMPRESSION: 1. Left Hip: Osteopenia. There has been 3.3% increase in the total hip bone mineral density since t he previous exam. 2. Femoral Neck: Bone Mineral Density is 0.787 g/cm2 3. Left Forearm: Osteoporosis. There has been 12.3% decrease in the bone mineral density since the previous exam The next DEXA scan of this patient should include the following sites: Left hip and the left forearm. FRAX? WHO Fracture Risk Assessment Tool link: <http://www.shef.ac.uk/FRAX/tool.jsp?locationValue=9> PLEASE NOTE: 1) The World Health Organization defines low BMD as follows: T-score Normal > -1 Osteopenia < -1 and > -2.5 Osteoporosis < -2.5 without fractures Established osteoporosis < -2.5 with fractures 2) In general, you may wish to consider: Diagnosis Treatment Follow-up DEXA Normal BMD Prevention 2-3 years Osteopenia Prevention/therapy 1-2 years Osteoporosis Therapy Yearly 3) Fracture risk estimated from the T-score is more accurate for vertebral fractures (often spontane ous) than for hip fractures. Report Dictated By: Kaylan Whitehead MD at 07/29/2018 10:30 AM Report E-Signed By: Kaylan Whitehead MD at 07/29/2018 10:48 AM WSN:[email or web address]
--- NOTE | 2018-07-29 14:05 | RADIOLOGY IMAGING REPORT ---
FACILITY: [facility] [place] PATIENT NAME: RADHA LUCAS : [id number] MR: [id number] V: [id number] EXAM DATE: [id number] ORDERING PHYSICIAN: KACIE ALEJO TECHNOLOGIST: Rosio Gleason PROCEDURE: BILATERAL DIGITAL SCREENING MAMMOGRAM WITH CAD ASSISTED INTERPRETATION & 3D TOMOSYNTHESIS REASON FOR STUDY: Screening. FAMILY HISTORY OF BREAST CANCER: Self. BREAST PROCEDURES/TREATMENTS: An Ultrasound guided surgical biopsy and lumpectomy of the Left breast followed by radiation and chemotherapy. COMPARISON: 07/27/17, 07/25/16, 01/19/16, 07/16/15, 08/20/14. VIEWS OBTAINED: 2D & 3D full field CC & MLO. BREAST DENSITY: The breasts are heterogeneously dense which can obscure small masses. MAMMOGRAM FINDINGS: There is an area of postsurgical scaring and architectural distortion along the medial inferior portion of the Left breast from prior lumpectomy. There is skin thickening of the Left breast consistent with the history of prior radiation therapy. The parenchymal pattern has otherwise remained stable. IMPRESSION: BIRADS 2: Benign finding. DIAGNOSTIC CATEGORY 2--BENIGN FINDING. RECOMMENDATIONS: ROUTINE MAMMOGRAM AND CLINICAL EVALUATION. Dictated by: Kaylan Whitehead M.D. on 07/29/2018 at 10:25 Transcribed by: ARVIND on 07/29/2018 at 10:55 Approved by: Kaylan Whitehead M.D. on 07/29/2018 at 14:04 [facility]
== END ==
LOC: RAD 01:15
PROVIDERS: ATTEND Nurse Practitioner Family
DX: Z12.31 Encounter for screening mammogram for malignant neoplasm of breast (principal); M81.0 Age-related osteoporosis without current pathological fracture; M85.852 Other specified disorders of bone density and structure, left thigh
CPT/HCPCS: 77063; 77067; 77080

== ENCOUNTER 2018-08-14 13:48 | Outpatient (RCR) | payer MEDICARE, OTHER ==
[2018-08-05 13:07] VITALS: BP 140/78
--- NOTE | 2018-08-06 07:38 | [facility] ONCOLOGY NOTE ---
EVENT DATE: August 05, 2018 CHIEF COMPLAINT/REASON FOR VISIT Ms. Asher is a pleasant 67-year old female with stage I, early stage, node negative, triple positive breast cancer here for followup. HISTORY OF PRESENT ILLNESS Karena returns. Overall, she is doing quite well. Her biggest issue is related to her cholesterol and I agree with Luda Mckeon's recommendation to try a new cholesterol medicine. She had been on Niacin as well as Red Yeast Rice, which she had myositis with the Red Yeast Rice. She used to take Niacin at night. Her triglycerides improved but the LDL did not. Her labs look quite well. Nothing on exam or in her history to suggest relapse of her cancer. She continues her hormonal therapy. No fevers, chills, concerning lumps or bumps, bone pain or any other symptoms of concern. ONCOLOGY HISTORY The patient received 9 out of a planned 12 cycles of weekly Taxol and Herceptin. The Taxol was stopped due to toxicity. Her history includes a stereotactic biopsy of the lesion in July of 2014 followed by resection with lumpectomy of the left breast lesion on August 20, 2014. She only had 8 mm of invasive cancer, and the sentinel lymph node was negative; however, it was HER2/franky overexpressed, thus she received chemotherapy and Herceptin. The patient then started on Arimidex and continues on this today. She completed radiation therapy to the left breast after the lumpectomy. This included a boost. Radiation was completed on February 15, 2015. SOCIAL HISTORY Patient is . She has two daughters and both live in [place]. Her hobbies include gardening. REVIEW OF SYSTEMS CONSTITUTIONAL: No fevers, chills, significant weight change. HEENT: Positive dizziness, improved with physical therapy. This is an inner ear issue. CARDIOVASCULAR: No chest pain, dyspnea on exertion or edema. RESPIRATORY: No shortness of breath, wheeze or cough. GASTROINTESTINAL: No nausea, vomiting. GENITOURINARY: No dysuria or hematuria. MUSCULOSKELETAL: Positive right shoulder pain. NEUROLOGIC: No deficits of any kind. ENDOCRINE: No heat or cold intolerance. PSYCHIATRIC: No anxiety or depression. HEMATOLOGIC/LYMPHATIC: No concerning lumps or bumps. SKIN: No concerning rashes or lesions. The remainder of 14-point review of systems otherwise negative. PHYSICAL EXAMINATION VITAL SIGNS: Blood pressure 140/78, pulse 66, respiratory rate 16, temperature 97.5 Fahrenheit, oxygen saturation 96% on room air, weight 68.8 kg, pain 2/10, fatigue 0/10. GENERAL: Stable condition, resting comfortably in the chair. HEENT: Normocephalic, atraumatic. CARDIOVASCULAR: Regular rate and rhythm. LUNGS: Clear. ABDOMEN: Soft, nontender, nondistended. EXTREMITIES: No clubbing, cyanosis or edema. The remainder of her exam is negative. She previously had a rash beneath the breast but this has resolved. IMPRESSION/PLAN Mrs. Asher is a pleasant 67-year-old female with the followin. Stage I early-stage node-negative triple-positive breast cancer. She has finished her year of tamoxifen and continues on aromatase inhibitor therapy for at least five years and perhaps ten years. She is tolerating it well. I do not believe that the AI was the cause of her myositis type pain. 2. Mild secondary erythrocytosis due to altitude. 3. Arthralgias. There could be a component from the aromatase inhibitor but I think she also has some osteoarthritis. 4. Dizziness due to inner ear. Very glad to hear that physical therapy has helped her. She is working with Richard at a local physical therapy clinic. I answered all of her many questions today. She is doing well and we would like to see her every six months. Billing: Return visit level 4. Total time 30 minutes, counseling time 20. MTDD
[~2018-08-14 13:48] MED LIST changes: -DENOSUMAB 60 MG/1 ML SYR SUBQ ONE
== END 2018-08-14 15:41 | disposition home or self-care (01) ==
LOC: SPU 13:48
PROVIDERS: ATTEND Internal Medicine
DX: C50.912 Malignant neoplasm of unspecified site of left female breast (principal); Z17.0 Estrogen receptor positive status [ER+]; Z79.811 Long term (current) use of aromatase inhibitors; M25.50 Pain in unspecified joint; R42 Dizziness and giddiness
CPT/HCPCS: 99212

== ENCOUNTER → 2018-08-14 | Outpatient (CLI) | payer MEDICARE, OTHER ==
[~2018-08-14] MED LIST changes: +DEN60I SUBQ; +DENOSUMAB 60 MG/1 ML SYR SUBQ ONE; +FENO48TA PO; +LOSA25TA57 PO
[2018-08-14 14:14] VITALS: BP 141/84
== END ==
LOC: SPU 13:55
PROVIDERS: ATTEND Nurse Practitioner Family
DX: M81.0 Age-related osteoporosis without current pathological fracture (principal)
CPT/HCPCS: 96372; J0897